=== PATIENT | male | born 1960 | race Two or more races ===

== ENCOUNTER 2024-10-08 06:05 | Day surgery (SDC) | payer MEDICAID, SELFPAY ==
--- NOTE | 2024-10-04 11:51 | EKG_ITS ---
[facility] Test Date: 2024-10-04 Pat Name: BARBER BARNARD Department: Room: - Gender: Male Tree Planter: MIGUELITO : 1960 Requested By: Fco Mcneil Order Number: [id number] Reading MD: Fco Mcneil Measurements Intervals [place] Rate: 61 P: 38 MD: 146 QRS: 36 QRSD: 96 T: 32 QT: 388 QTc: 392 Interpretive Statements SINUS RHYTHM No previous ECG available for comparison /store/S0/[id number]/ecg/[id number].pdf
[2024-10-04 11:58] VITALS: BMI 23.3
[2024-10-04 12:39] LABS: Collection Type, Urine Clean Catch; Squamous Epithelial Cell,Urine 0 /hpf (0-5)
[2024-10-04 13:22] LABS: Basophils # (Auto) 0.1 Thou/mm3 (0.0-0.2); Basophils % (Auto) 1 % (0-2.5); Eosinophils # (Auto) 0.3 Thou/mm3 (0.0-0.5); Eosinophils % (Auto) 4 % (0-10); Hematocrit 42.1 % (41.0-53.0); Hemoglobin 14.4 g/dL (13.5-16.0); Immature Granulocytes Auto 0.01 Thou/mm3 (0.00-0.00); Lymphocytes # (Auto) 2.2 Thou/mm3 (1.0-4.8); Lymphocytes % (Auto) 32 % (10-50); Mean Corpuscular HGB Conc 34.2 g/dl (31.0-37.0); Mean Corpuscular Hemoglobin 31.9 pg (25.0-35.0); Mean Corpuscular Volume 93 fL (80-100); Monocytes # (Auto) 0.7 Thou/mm3 (0.0-0.8); Monocytes % (Auto) 10 % (0-12); Neutrophils # (Auto) 3.7 Thou/mm3 (1.8-7.7); Neutrophils % (Auto) 54 % (37-80); Nucleated Red Blood Cell # 0.00 Thou/mm3 (0.00-0.00); Nucleated Red Blood Cell % 0 /100 WBC (0); Platelet Count 234 Thou/mm3 (140-440); RDW Standard Deviation 43.4 fL (35.1-43.9); Red Blood Count 4.51 Miln/mm3 (4.50-5.90); White Blood Count 7.0 Thou/mm3 (3.8-10.6)
[2024-10-04 13:34] LABS: Bilirubin,Urine Negative (Negative); Blood,Urine Negative (Negative); Clarity,Urine Clear (Clear/Hazy); Color,Urine Colorless (Lt Yel-Yel); Glucose, Urine 4+ (Negative); Ketones,Urine Negative (Negative); Leukocyte Esterase,Urine Negative (Negative); Nitrite,Urine Negative (Negative); PH,Urine 6.0 (5.0-7.0); Protein,Urine Negative (Neg - Trace); RBC,Urine 1 /hpf (0-3); Specific Gravity,Urine 1.034 (1.001-1.035); Urobilinogen,Urine Negative mg/dL (0.0-1.0); WBC,Urine < 1 /hpf (0-5)
[2024-10-04 13:41] LABS: Alanine Aminotransferase 18 U/L (10-49); Albumin, Serum 4.3 gm/dL (3.4-4.8); Albumin/Globulin Ratio 1.4 (1.2-2.2); Alkaline Phosphatase 134 U/L (46-116); Anion Gap 10 (7-16); Aspartate Amino Transferase 20 U/L (0-34); BUN/Creatinine Ratio 17 Ratio (12-20); Bilirubin,Total 0.5 mg/dL (0.3-1.2); Blood Urea Nitrogen 17 mg/dL (9-23); Calcium 9.7 mg/dL (8.3-10.6); Calcium (Corrected) 9.7 mg/dL (8.5-10.1); Carbon Dioxide 28.9 mMol/L (20.0-31.0); Chloride 101 mMol/L (98-107); Creatinine (Component) 1.0 mg/dL (0.6-1.3); Estimated Creatinine Clearance 60.1 mL/min (>60); Globulin 3.0 gm/dL (2.3-3.5); Glucose 212 mg/dL (74-106); Osmolality,Calculated 286 (275-295); Potassium 4.4 mMol/L (3.4-5.1); Sodium 140 mMol/L (136-145); Total Protein 7.3 gm/dL (5.7-8.2); eGFR > 60 See Note
[2024-10-08] VITALS (7 sets, daily range): BP systolic 117–142; BP diastolic 66–85; PULSE 58–76; RESP 12–17; TEMP 36.2–36.6; O2SAT 98–99; BMI 21.8
--- NOTE | 2024-10-08 07:11 | ESHP_ITS ---
RE: BARBER BARNARD : 1960 DATE OF ADMISSION: 10/08/2024 This 64-year-old gentleman, who has phimosis. He is now scheduled to have circumcision. Planned procedure, risks and complications have been discussed with the patient. The patient has understood them and agreed to proceed. The patient has a tight phimosis. Previous surgery is none. He has 3 children. He has history of diabetes mellitus and he is on Janumet, statin medication and Jardiance. He does not have any history of hypertension. Allergies NONE KNOWN. CLINICAL EXAMINATION: Reveals HEENT normal. Neck supple. Lungs are clear. Heart sounds are normal. Abdomen is soft. Phallus reveals slight phimosis. Testes are down in the scrotum. Rectal examination revealed moderately enlarged smooth prostate. IMPRESSION: 1. Tight phimosis. 2. Diabetes mellitus. PLAN: Circumcision. Planned procedure, risks and complications have been discussed with patient. The patient has understood them and agreed to proceed. DT: 16:56:04 TT: 17:46:00 Ref: [id number] - TID: [id number]
--- NOTE | 2024-10-08 09:22 | SUR.PHASEI ---
0922: Pt. wakes to name then drifts back to sleep, vitals stable, breathing unlabored, no complaint of pain or nausea, dressing to penis CDI, no active bleed noted, report recieved from MD Tran and Glendy SMITH.
--- NOTE | 2024-10-08 10:20 | SUR.PHASEII ---
1020: Pt. AAOx4, vitals stable, breathing unlabored, no complaint of pain or nausea, dressing around penis CDI, no active bleed noted, pt. tolerated sips of water well, pt. ambulated to wheelchair with steady gait and no assist, no complications. Gave discharge instructions to the pt. and his ride using a winch driver, both verbalized understanding and had no further questions. Pt. left with all personal belongings.
--- NOTE | 2024-10-08 11:18 | ESOP_ITS ---
RE: BARBER BARNARD : 1960 DATE OF OPERATION: 10/08/2024 PREOPERATIVE DIAGNOSES: 1. Tight phimosis. 2. History of diabetes mellitus. POSTOPERATIVE DIAGNOSES: 1. Tight phimosis. 2. History of diabetes mellitus. PROCEDURE PERFORMED: Circumcision. ANESTHESIA: General by Dr. Tran. INDICATION: The patient is a 64-year-old diabetic male with history of tight phimosis. He is now scheduled to have circumcision. Planned procedure, risks and complications have been discussed with the patient. The patient understood them and agreed to proceed. DESCRIPTION OF PROCEDURE: After the patient was brought to the operating table under adequate general anesthesia given by Dr. Tran, he was placed in supine position. Parts were prepped and draped in the usual fashion. Circumcision was then carried out in a standard fashion by excising the foreskin at the circumferential manner at the level of woodard glandis. Complete hemostasis was obtained by using electrocoagulation. Skin was reapproximated back by placing interrupted sutures of 3-0 chromic catgut. Local anesthetic was injected at the base of the penis. Sterile dressing was then applied. The patient was then transferred to the recovery room in a satisfactory condition having tolerated the entire procedure well. Sponge count and needle count at the end of the procedure was found to be correct. Estimated blood loss was approximately 5 mL. DT: 09:29:49 TT: 11:15:00 Ref: [id number] - TID: [id number]
== END 2024-10-08 10:20 | disposition home or self-care (01) ==
PROVIDERS: Anesthesiology; PCP Family Medicine; Referring Provider Surgery; Visit Provider Surgery
PROC: (CPT 54161; principal; 2024-10-08 08:30)
DX: N47.1 Phimosis (principal); E11.9 Type 2 diabetes mellitus without complications; Z01.810 Encounter for preprocedural cardiovascular examination
CPT/HCPCS: 54161; 36415; 80053; 81001; 85025; 87086; 93005; A4217; A4649; J0690; J1100; J2371; J2704; J2765; J3010; J3490; A9270; J0665